=== PATIENT | female | born 1965 | race Caucasian/White ===

== ENCOUNTER 2016-11-12 10:18 | Inpatient (IN) ==
[2016-11-12] MEDS ORDERED: ASPIRIN PO STA (10:31)
--- NOTE | 2016-11-12 10:37 | EKG Report ---
Test Performed on : 11/12/2016 10:24:34 AM Test Reason : CHEST PAIN Blood Pressure : / mmHG Vent. Rate : 042 BPM Atrial Rate : 042 BPM P-R Int : 208 ms QRS Dur : 124 ms QT Int : 540 ms P-R-T Axes : 079 -67 097 degrees QTc Int : 450 ms Marked sinus bradycardia. with sinus arrhythmia. Left axis deviation Nonspecific intraventricular conduction delay Nonspecific ST abnormality Abnormal QRS-T angle, consider primary T wave abnormality Abnormal ECG When compared with ECG of 07-OCT-2015 05:47, Vent. rate has decreased BY 52 BPM Questionable change in QRS duration Unconfirmed Result
[2016-11-12 10:43] LABS: MANUAL DIFF NEEDED? NO
--- NOTE | 2016-11-12 10:53 | Diag Imaging Result Doc PS360 ---
CHEST-PORTABLE - 11/12/2016 INDICATION: CP TECHNIQUE: COMPARISON: 10/07/2015 FINDINGS: Stable right-sided dialysis catheter in good position. Stable critically low lung volumes. Stable cardiomegaly and pulmonary vascular congestion. No new or focal infiltrates. No pneumothorax or large effusion. IMPRESSION: No change from prior. Electronically signed by Shaw Dias 11/12/2016 10:50 AM
[2016-11-12 10:58] LABS: BASO% 0.4 % (0.0-0.8); EOS# 0.17 X1000 (0.0-0.7); EOS% 1.4 % (0.0-10.0); HEMATOCRIT 32.1 % (37.0-47.0); HEMOGLOBIN 10.1 g/dL (12.0-16.0); IMM GRAN# 0.06 X1000 (0.0-0.04); IMM GRAN% 0.5 % (0.0-0.5); LYMPH# 1.53 X1000 (1.2-3.4); LYMPH% 12.4 % (20.5-51.1); MCH 28.5 PG (27-31); MCHC 31.5 g/dL (33-37); MCV 90.4 FL (81-99); MONO# 0.98 X1000 (0.11-0.59); MONO% 7.9 % (1.7-9.3); MPV 9.5 FL (7.4-10.4); NEUT% 77.4 % (42.2-75.2); PLT 305 X1000 (130-400); RBC 3.55 XMIL (4.2-5.4)
[2016-11-12] MEDS ORDERED: NS 250 ML ONE (11:01)
[2016-11-12 11:05] LABS: INR 1.19 (0.86-1.15); PROTIME 16.1 Seconds (12.1-15.5); PTT PL 33.7 Seconds (22.6-43.9)
[2016-11-12] MEDS ORDERED: NS 250 ML IV ONE ×2 (11:10→11:42)
[2016-11-12 11:30] LABS: BE -17.4 mmoll (-3.0-3.0); BLOOD TYPE ARTERIAL; DRAW SITE R RADIAL; METHB 1.4 % (0.0-1.5); O2(CT) 13.1 mL/dL (15.0-23.0); PCO2(98.6) 24 mmHg (35-45); PO2(98.6) 87 mmHg (60-100); SAMPLE BLOOD; SAO2 95.7 % (95.0-100.0); THB 10.1 g/dL (11.5-17.4)
[2016-11-12 11:37] LABS: ALLEN TEST YES; MODALITY CANNULA; pH(98.6) 7.19 (7.35-7.45)
[2016-11-12] MEDS ORDERED: NEUT IV ONE (11:44)
[2016-11-12] MEDS ORDERED: SODIUM BICARBONATE 8.4% ONE (11:51)
[2016-11-12] MEDS ORDERED: SODIUM BICARBONATE IV ONE (12:00)
[2016-11-12] MEDS ORDERED: NS IV ONE (12:00)
[2016-11-12 12:03] LABS: ALBUMIN 3.8 g/dL (3.5-5.0); CALCIUM 7.5 mg/dL (8.8-10.2); MAGNESIUM 2.4 mg/dL (1.5-2.7); POTASSIUM 9.4 mmol/L (3.5-5.1); TOTAL BILIRUBIN 0.7 mg/dL (0.20-1.00); TOTAL PROTEIN 6.9 g/dL (6.3-8.3)
[2016-11-12] MEDS ORDERED: D50W SYRINGE IV ONE (12:12)
[2016-11-12] MEDS ORDERED: HUMULIN R (PARKWAY) IV ONE (12:12)
[2016-11-12] MEDS ORDERED: CALCIUM GLUCONATE 1 GM in NS 50 ML IV ONE (12:12)
[2016-11-12] MEDS ORDERED: ALBUTEROL NEB INH ONE (12:16)
[2016-11-12 12:23] LABS: CK INDEX 1.9 (0.0-2.5); CK-MB 4.24 ng/mL (0.0-5.0)
[2016-11-12] MEDS ORDERED: TIGHT: 0.2 ML/HR MISC PRN (12:27)
[2016-11-12] MEDS ORDERED: HEPARIN IV PRN ×2 (12:27→17:26)
[2016-11-12] MEDS ORDERED: NS 2,000 ML MISC PRN (12:27)
[2016-11-12] MEDS ORDERED: HEPARIN ONE (12:51)
[2016-11-12] MEDS ORDERED: NS 2,000 ML ONE (12:51)
[2016-11-12 16:27] LABS: HEMOGLOBIN A1C 7.9 % (4.8-6.0)
[2016-11-12 16:40] LABS: CHLORIDE 93 mmol/L (98-107); POTASSIUM 5.4 mmol/L (3.5-5.1); SODIUM 137 mmol/L (136-145); TCO2 18 mmol/L (25-35)
[2016-11-12 16:41] LABS: AGAP 26; BUN 70 mg/dL (8-22); CALCIUM 8.2 mg/dL (8.8-10.2); COSMO 295; TOTAL BILIRUBIN 0.91 mg/dL (0.20-1.00); TOTAL PROTEIN 8.4 g/dL (6.3-8.3)
[2016-11-12 16:42] LABS: ALBUMIN 3.8 g/dL (3.5-5.0); ALKALINE PHOSPHATASE 228 U/L (32-104); GOT 164 U/L (10-30); GPT 129 U/L (10-36); TOTAL IRON 73 ug/dL (49-151); UNBOUND IRON 149 ug/dL (112-346)
[2016-11-12 16:44] LABS: IRON SATURATION 33 %; TIBC 222 ug/dL
[2016-11-12 16:45] LABS: ACETONE SERUM NEGATIVE (NEGATIVE)
[2016-11-12] MEDS: HUMALOG SUBQ SCH ×2 (16:53→21:10)
[2016-11-12] MEDS: LABETALOL IV PRN ×2 (16:59→21:09)
[2016-11-12 17:07] LABS: CK INDEX 1.1 (0.0-2.5); CK-MB 5.43 ng/mL (0.0-5.0)
--- NOTE | 2016-11-12 17:24 | PROGRESS NOTE ---
DATE: 11/12/2016 This is a return visit, 2nd visit on dialysis. She has tolerated her treatment well and is nearing completion. LABORATORY DATA: Reviewed. Blood pressure, chart reviewed. No changes in prescription and no reason to lengthen her treatment at this time. We will plan to repeat tomorrow. cc: Damien Grant MD
[2016-11-12] MEDS ORDERED: HEPARIN 25,000 UNITS/D5W 25,000 UNIT/250 ML IV.SOLN IV SCH (17:30)
--- NOTE | 2016-11-12 17:30 | CONSULTATION ---
DATE OF CONSULTATION: 11/12/2016 REASON FOR CONSULTATION: Life-threatening hyperkalemia and volume overload. HISTORY OF PRESENT ILLNESS: Ms. Sun is a 51-year-old white female who is well known to us. She has diabetes, obesity, history of CVA, peripheral vascular disease status post right BKA. She has end-stage kidney disease and receives dialysis every Friday, Friday, and Friday. She did not attend her appointment on Friday because of technical issues at her clinic. Over the weekend she became progressively more weak and unable to get out of the chair. She is not clear on why she did not attend her treatment on Friday. She had progressively worsening shortness of breath and profound weakness and ultimately was transferred to the emergency room by ambulance. She had shortness of breath but no cough or sputum. No chest pain. No chills, fever, sweats, night sweats, etc. She does describe being cold at this time. No nausea, vomiting. No diarrhea. She has not noticed any changes in her leg as far as pain but she has noticed an ulceration on the left great toe. She states that there was an area of loose skin that she denuded about a week ago. PAST MEDICAL HISTORY: As above. HOME MEDICATIONS: Insulin, omeprazole, methocarbamol, labetalol, hydralazine, gabapentin. ALLERGIES: No medical allergies. SOCIAL HISTORY: She lives alone, is transported to and from dialysis via ambulance. She lived in [facility] for an extended time before recently transferring to an apartment. FAMILY HISTORY: Otherwise noncontributory. REVIEW OF SYSTEMS: Otherwise noncontributory. PHYSICAL EXAMINATION: Vital Signs: Blood pressure 192/85, heart rate 79, respiration 18, afebrile. General: She is an obese, middle-aged woman lying at 30 degrees in no acute distress. She is awake and alert and appropriate and oriented. Skin: Warm and dry except as below. HEENT: Pupils are equal, round. Conjunctivae are pink and moist. Oropharynx is dry. Tongue is midline and dentition normal. Neck: Supple. Trachea is midline. No jugular venous distention is visible. Heart: Distant and difficult to auscultate regular but no gallops or murmurs. Lungs: Have equal breath sounds. No crackles or wheezes. Abdomen: Obese and soft. Bowel sounds are present. No organomegaly or masses. Extremities: Have 2+ to 3+ edema extending up into the thigh. The left foot is cool and dark and somewhat mottled. Capillary refill is present but approximately 12 seconds. No palpable pulses. There is an ulcer on the dorsal aspect of the left 1st toe. Neurologic Exam: Grossly nonfocal. LABORATORY DATA: Reviewed. IMPRESSION: 1. Life-threatening hyperkalemia. She has been treated with hemodialysis with 0 K bath for 30 minutes then transitioned to 2 potassium bath. Her potassium was initially treated in the emergency room with calcium, insulin, albuterol. Her calcium has improved from 9.4 to 5.4 as of 1601. 2. Volume overload. Targeting 3-4 L ultrafiltration today and will repeat again tomorrow. She is on nasal cannula oxygen with good O2 saturations. 3. Metabolic acidosis. Lactate was 1.4. Salicylate and acetone were negative related to her renal dysfunction and under dialysis. 4. Left leg ischemia. Subacute. She states that it has looked like this for at least a couple days. She denies pain. Will ask surgery to evaluate. She states she will not accept amputation. cc: Damien Grant MD
[2016-11-12 17:34] LABS: FREE T4 1.46 ng/dL (0.93-1.70)
[2016-11-12] MEDS ORDERED: HEPARIN IV ONE (17:52)
--- NOTE | 2016-11-12 18:03 | PROGRESS NOTE ---
DATE: 11/12/2016 SUBJECTIVE: Today Ms. Sun referred to be doing fine. Of note Ms. Sun presented to the emergency department in [place] after she felt shortness of breath and weakness, could not get up on her feet so she decided to go to the emergency department. Over there she was worked up and found to have extreme abnormality in her electrolytes and was transferred here. Ms. Sun is an end-stage renal patient who is on dialysis but has not had dialysis for the past 2 sessions. OBJECTIVE: Vital signs: Blood pressure is 192/85, pulse of 79, respirations 18, temperature is 97.1 degrees. General: Ms. Sun is a 51-year-old, female is obese with a BMI of 35.7, she is in bed, no seemingly distress. She was just finishing dialysis. HEENT: Mucosa is pink and moist. Anicteric. Acyanotic. Neck: Supple. Chest: Good air entry bilateral. No crepitations. No rhonchi. Cardiovascular: Regular rate and rhythm. Abdomen: Soft, nontender. Extremities: There is a right BKA. The left lower extremity is kind of purplish from the toes all the way to the midcalf, is very cold at the distal foot. Pulse is imperceptible and there is a distal ulceration over the left big toe. LABORATORY DATA: WBC is 12.37, hemoglobin is 10.1, platelet count of 305,000. Chemistry is reviewed. Of note potassium was about 9.4, it was aggressively treated and now down to 5.4. A chest x-ray which was done on presentation shows a right subclavian dialysis catheter in place, mild cardiomegaly and some few pulmonary congestion. ASSESSMENT: 1. Mild fluid overload likely due to noncompliance with dialysis. 2. Endstage renal disease on dialysis Friday, Friday and Friday. Patient did not have dialysis since last Friday missed 2 sessions. 3. Severe critical hyperkalemia with EKG changes (EKG had peaked T-waves and severe bradycardia which got improved with therapy). Patient is also getting dialysis and this will also be further managed. 4. Left leg discoloration with coldness suspicious for acute ischemic limb. Patient has been started on prophylactic heparin but I will go ahead and put her on therapeutic heparin until patient is seen by surgery today. 5. Hypertension. Will start the patient on her home medications and put labetalol p.r.n. for blood pressure control. 6. Gap acidosis likely due to the renal failure. 7. Mild elevation in troponins. Patient does not have any chest pain, I think is probably due to the fact that is due to her renal disease. 8. Patient was already seen in [place]. History and physical has already been done I have been told by Ericka Oneil. cc: Nhan Urias MD
--- NOTE | 2016-11-12 18:15 | HISTORY AND PHYSICAL ---
CHIEF COMPLAINT: Chest pain and back pain. HISTORY OF PRESENT ILLNESS: This is a 51-year-old female with a history of diabetes mellitus, history of CVA, peripheral vascular disease status post right BKA, end-stage kidney disease with dialysis Friday, Friday, Friday. Evidently, the patient missed dialysis Friday due to a technical issue at the clinic. She reported progressive weakness over the weekend. At the time of interview she is confused and she is unsure why she did not attend her Friday dialysis. On arrival to the emergency room, she was noted to be short of breath. She had no cough or fever. She was noted to have a systolic blood pressure in the 80s per EMS. She is agitated at times. On arrival she did have a blood pressure of 108/42 with a heart rate of 56. Labs revealed a sodium of 136 with a potassium of 9.4, chloride 96, CO2 11 with a creatinine of 14.2 for which she was given an amp of bicarb with 10 units of regular insulin, D50 and calcium gluconate. Dr. Grant, Nephrology, was consulted and the patient is being transferred to [facility] for emergent dialysis and further medical management per Dr. Grant. PAST MEDICAL HISTORY: End-stage renal disease, obesity, CVA, peripheral vascular disease status post right BKA. End-stage renal disease with Friday, Friday, Friday dialysis. ALLERGIES: No known medical allergies. SOCIAL HISTORY: She does live alone. She goes to and from dialysis via ambulance. She denies alcohol, tobacco, or illicit drug use. REVIEW OF SYSTEMS: Unable to obtain at present. PHYSICAL EXAMINATION: GENERAL: This is a 51-year-old, obese female, who is sitting up in the bed, agitated at present. VITAL SIGNS: Blood pressure is 96/54 with a heart rate of 71, respirations are 18, temperature is 97.2 degrees temporal, with O2 saturations running 96-98% on 3 L nasal cannula. HEENT: Head is normocephalic, atraumatic. Pupils equal, round, reactive to light. EOMs are intact. Sclerae anicteric. Mucous membranes are moist. NECK: Supple. Trachea midline. No JVD noted. CARDIOVASCULAR: Heart sounds are distant and regular. LUNGS: Breath sounds are clear with no increased work of breathing noted. GASTROINTESTINAL: Abdomen is large, soft, nontender with bowel sounds in all 4 quadrants. EXTREMITIES: She has 2 to 3+ pitting edema extending up into the thigh. Left foot is cool, dark from about mid rodriguez down with capillary refill greater than 10 seconds. She has no palpable pulses in that leg. She does have an ulcer on the first toe. LABS: WBC is 12.3 with a hemoglobin 10, hematocrit 32.1 and platelets of 305,000. INR is 1.19. Sodium is 136, potassium 9.4, chloride 96, CO2 11, BUN 128, creatinine 14.2, with a glucose of 158. Acetone level is negative. Blood cultures are pending. ASSESSMENT AND PLAN: 1. Life-threatening hyperkalemia. The patient is being transferred to [facility] for emergent dialysis. She was initially treated in the emergency room with insulin, albuterol, calcium and D50. 2. End-stage renal disease with Friday, Friday, Friday hemodialysis. 3. Volume overload. The patient did miss 2 dialysis treatments. As stated above, she is being transferred for emergency dialysis. 4. Metabolic acidosis. Salicylate and acetone are negative. 5. Left leg ischemia. General Surgery will be consulted after dialysis. 6. Diabetes mellitus. The patient will be placed on pattern blood glucose with sliding scale insulin. 7. Further treatments pending hospital course. Dictated by NITISH Mir for Severo Smart MD cc: NITISH Mir MD
--- NOTE | 2016-11-12 19:27 | CONSULTATION ---
DATE OF CONSULTATION: 11/12/2016 REQUESTING PHYSICIAN: Nhan Urias MD REASON FOR CONSULTATION: Cold left leg. HISTORY OF PRESENT ILLNESS: A 51-year-old female with longstanding diabetes, obesity, history of CVA, history F peripheral vascular disease status post right qkale-voj-zkjw amputation, end-stage renal disease requiring dialysis who apparently missed her appointment for dialysis and became progressively flow volume overloaded. She was seen in the emergency room because of shortness of breath and had emergent dialysis. She was noted to have a potassium 9.4. She underwent dialysis at this time, which she tolerated. I was asked to evaluate the patient because she has had a several-day history of a cold leg. She denies any history of claudication, but she has had a previous bkkhy-grg-qazu amputation for diabetes on the right side. She says this has been going on for several days, but she says she can move her leg. She does have decreased sensation suggestive of peripheral neuropathy. Again, this has been going on for some time and is likely a subacute process. The nurses were able find Doppler signals. Again, I was asked for an evaluation. PAST MEDICAL HISTORY: 1. End-stage renal disease. 2. Obesity. 3. History of CVA. 4. Peripheral vascular disease. 5. End-stage renal disease requiring dialysis. PAST SURGICAL HISTORY: 1. Previous vascular access. 2. Right uqfhw-myk-qvqj amputation. HOME MEDICATIONS: Insulin, omeprazole, methocarbamol, labetalol, hydralazine, gabapentin. ALLERGIES: None. SOCIAL: She lives in a nursing facility. FAMILY HISTORY: Reviewed with patient, noncontributory. REVIEW OF SYSTEMS: A full 10-point review of systems obtained, negative except as specified in HPI. PHYSICAL EXAMINATION: Vital Signs: The patient is currently afebrile. Pulse is 79, blood pressure 192/85. O2 saturation 98% on 3 L nasal cannula. General: No acute distress. Alert, interactive, female, looks stated age. HEENT: Normocephalic, atraumatic. Pupils equal, round, react to light. Mucous membranes moist. Oropharynx benign. Neck: Supple. Trachea midline. Cardiovascular: Regular rate and rhythm. Lungs: Clear. Abdomen: Soft, nontender, nondistended. Extremities: Previous right dvsfc-yjs-[id number] amputation well healed. Left leg, skin changes suggestive of chronic vascular disease all the way to calf. Her toes are cyanotic. I am unable to find a signal in the dorsalis pedis or the posterior tibial by Doppler. I am unable to find a popliteal signal by Doppler. I was able to faintly palpate a femoral pulse, but also found it by Doppler with a triphasic to biphasic signal. Vascular: As noted above. Skin: As noted above. LABORATORY: White blood cell count is 12. Hematocrit 32. Platelet count 305,000. INR is 1.19. ABG reviewed. Laboratory from earlier this morning reviewed. ASSESSMENT AND PLAN: A 51-year-old female with multiple medical comorbidities with life- threatening hyperkalemia, end-stage renal disease and cold left leg. 1. Life-threatening hyperkalemia, being managed by dialysis. The hospitalist and Nephrology are on board. Continue current treatment. 2. End-stage renal disease. Currently undergoing dialysis. 3. Cool left leg. This appears to be a subacute process. Given her elevated creatinine and inability to get a computed tomography angiography at this time, we will ask the Seat Pack Inspector to come in and do ultrasound of the arterial aspect of the left leg. I did discuss this over the phone with a Seat Pack Inspector. She is aware. She is coming in. If there is need to, may consider doing a computed tomography angiography of the lower extremity in the morning right before she is due for dialysis, but right now we will continue to resuscitate her and correct her electrolyte abnormalities. Patient does refuse to have any kind amputation, but she might be amenable to having some kind of vascular intervention. I will need more diagnostic imaging to have an idea of where exactly disease process lies, but I imagine it is somewhere in the superficial femoral artery distribution given her presentation. I will continue to follow with you. I appreciate this consult. cc: Alexis Armenta MD
[2016-11-12] MEDS ORDERED: HEPARIN SUBQ SCH (21:00)
[2016-11-12] MEDS ORDERED: HALDOL IM PRN ×2 (22:07→22:10)
[2016-11-12] MEDS ORDERED: HALDOL ONE (22:14)
[2016-11-13 00:29] LABS: CK INDEX 0.7 (0.0-2.5); CK-MB 7.72 ng/mL (0.0-5.0)
[2016-11-13] MEDS ORDERED: DILAUDID IV ONE (02:54)
[2016-11-13] MEDS ORDERED: DILAUDID ONE (02:58)
[2016-11-13] MEDS ORDERED: D50W SYRINGE ONE (06:15)
[2016-11-13] MEDS: HUMALOG SUBQ SCH ×4 (06:17→20:08)
[2016-11-13 06:43] LABS: ALBUMIN 3.7 g/dL (3.5-5.0); CALCIUM 8.2 mg/dL (8.8-10.2); POTASSIUM 5.1 mmol/L (3.5-5.1)
--- NOTE | 2016-11-13 07:00 | PROGRESS NOTE ---
DATE: 11/13/2016 SUBJECTIVE: No major changes. Patient is on a heparin drip. She has essentially had no urine output. OBJECTIVE: Vital Signs: Patient is currently afebrile. Her vital signs are stable. General: Resting comfortably. No acute distress. HEENT: Normocephalic, atraumatic. Pupils equal, round, reactive to light. Mucous membranes moist. Oropharynx benign. Neck: Supple. Trachea midline. Cardiovascular: Regular rate and rhythm. Lungs: Grossly clear. Abdomen: Soft, nontender, nondistended. Extremities: Right uoefk-bns-bfrv amputation unchanged. Left side essentially unchanged. IMAGING DATA: Reviewed images from limited of vascular ultrasound of the left lower extremity. There appears to be significant superficial femoral artery disease and potentially even common iliac and common femoral disease. She likely has some degree of collateralization down to the popliteal through arteries around the knee, but she essentially has no flow through the superficial femoral artery, but it is a limited exam. ASSESSMENT AND PLAN: A 51-year-old female with multiple medical comorbidities, with a cold leg. 1. Life-threatening hyperkalemia. At this time, patient has undergoing dialysis. Labs are still pending for this morning, but she was improving 2. End-stage renal disease. At this time, she has made no urine. We will continue with dialysis, per Nephrology. 3. Cool leg. At this time, this is a subacute process. Likely, given the collateralization, she has had this for a while. Discussed with Dr. Grant over the phone yesterday. Will order a CTA with runoff to evaluate her disease burden. She will need dialysis afterwards. She is making no urine. Suspect overall burden to her kidneys is minimal because I suspect they are probably beyond being salvaged. She has informed me that she does not want an amputation. I suspect any kind of bypass would be futile at best, but will need to get the anatomic aspects defined better prior to any kind of consideration for surgical intervention. cc: Alexis Armenta MD
[2016-11-13 07:05] LABS: CK INDEX 1.4 (0.0-2.5); CK-MB 19.91 ng/mL (0.0-5.0)
[2016-11-13] MEDS ORDERED: NS 2,000 ML MISC PRN (07:30)
[2016-11-13] MEDS ORDERED: NS 2,000 ML ONE (08:42)
[2016-11-13] MEDS ORDERED: HEPARIN ONE (08:42)
--- NOTE | 2016-11-13 09:32 | Diag Imaging Result Doc PS360 ---
EXAM: ANGIOGRAM/AORTA W/RUNOFF HISTORY: Cold left lower extremity TECHNIQUE: CT angiogram abdomen, pelvis, and with runoff. MIP images obtained. Dose reduction protocol. COMPARISON: None. FINDINGS: The gallbladder is distended. No adjacent inflammation. No focal hepatic abnormality. Normal spleen, pancreas, and adrenal glands. Kidneys are mildly atrophic. No renal mass. There are small para-aortic and pericaval lymph nodes. No bowel obstruction. There are no bladder is distended and appears normal. Normal uterus and ovaries. No abscess. There is severe atherosclerosis in the abdomen, pelvis, and lower extremities. No abdominal aortic aneurysm. Normal takeoff of the celiac artery. Normal takeoff of the superior mesenteric artery. There is narrowing to the proximal and mid left renal artery. Stenosis is between 50 and 70%. Normal takeoff of the right renal artery. Stenosis of 50% at the takeoff of the inferior mesenteric artery. Left: Prominent atherosclerosis in the common iliac artery. Stenosis of approximately 50% at the bifurcation. There is a stenosis in the distal external iliac artery and proximal common femoral artery of 70%. There is complete occlusion throughout the length of the superficial femoral artery. Multiple prominent stenoses within the deep femoral artery. There are scattered muscular collaterals that fill with contrast. The proximal popliteal artery is occluded. The distal popliteal artery contains a small amount of contrast. Although there multiple stenoses in the proximal anterior and posterior tibial arteries, these arteries do contain contrast and continue all the way to the ankle. Right: Stenosis of the distal common iliac artery of approximately 50% at the bifurcation. Stenosis in the distal common femoral artery of approximately 50%. There is complete occlusion of the superficial femoral artery throughout its extent. The popliteal artery is also occluded. There are several tiny muscular collaterals which contain contrast. The deep femoral artery is also occluded. There has been a esycy-srm-elll amputation. IMPRESSION: Multiple occlusions and stenoses in the lower extremities as described. Electronically signed by Oscar Farr 11/13/2016 9:30 AM
--- NOTE | 2016-11-13 10:15 | PROGRESS NOTE ---
DATE: 11/13/2016 TIME SEEN: 0750. SUBJECTIVE: Ms. Sun has just returned from having a scan done for an aortic runoff to her lower extremity. She denies chest pain or increased work of breathing. OBJECTIVE: Vital Signs: Temperature 98.7 degrees, blood pressure 123/82, heart rate 78, respirations 14. She is on 4 L nasal cannula. Last recorded saturation 94%. She has had 281 in. She has had 5.7 L removed off dialysis. No urine out. Labs: Sodium 143, potassium 5.1, chloride 96, CO2 21, BUN 71, creatinine 9.3, glucose 42, anion gap 26, calcium 8.2, phosphorus 10.4, albumin 3.7. Her previous white count is 12.37 with a hemoglobin of 10.1. Her PTT is 42. TSH 4.1, free T4 1.46. Troponin 0.681 with an MB of 19.91. Plasma lactate of 1.3. PHYSICAL EXAMINATION: General: This is a 51-year-old white female. She is currently resting in bed. She is in no acute distress. Skin: Warm and dry. HEENT: Atraumatic, normocephalic. Conjunctivae pale. She has NORMAN. Mucous membranes are moist. Neck: Supple. Trachea midline. No JVD. Cardiovascular: She has distant heart sounds. S1, S2 noted. No gallop or murmur appreciated. Lungs: Clear to auscultation bilateral. She remains on O2. Equal excursion. Abdomen: Obese, soft, nontender. Positive bowel sounds. Genitourinary: Not inspected. Minimal void with dialysis assist. Extremities: With 2 to 3+ lower extremity edema up into the thigh. Left foot is cool and dark, mottled. No pulse palpable. Neurological: She is alert and oriented x3 with loss of recent events yesterday. ASSESSMENT AND PLAN: 1. End-stage renal disease. Patient is due for treatment today per her routine scheduled prescription she had an acute dialysis treatment yesterday for life- threatening hyperkalemia of 9.4. We will plan to dialyze the patient today. She is to be on a 2 K bath. We will dialyze her for 3.5 hours. We will attempt to challenge her dry weight. 2. Electrolytes. Hyperkalemia has improved status post dialysis. It continues slightly elevated at 5.1, with dialysis correction today. 3. Acid-base balance. Again, slightly acidotic with an elevated anion gap. We will plan for dialysis today for correction. 4. Anemia. This remains stable. 5. Left leg ischemia with a diabetic foot. This is being followed by Dr. Armenta. I would like to thank you for allowing us to follow with this patient. Patient seen, data reviewed, discussed with Montana Kraft on 11/13/16. I agree with the above assessment and plan of care. rg Dictated by NITISH Harris for Damien Grant MD cc: NITISH Harris MD [facility]
--- NOTE | 2016-11-13 12:06 | PROGRESS NOTE ---
DATE: 11/13/2016 SUBJECTIVE: Today, Ms. Sun refers to be doing fine. Of note, she denies any chest pain, any shortness of breath. No more shortness of breath. She has been evaluated by surgery today and CTA was ordered. PHYSICAL EXAMINATION: Vital Signs: Blood pressure is 136/92, pulse of 78, respirations are 18, temperature is 98.7 degrees. General Examination: Ms. Sun is a 51-year-old, female. She was in bed. Not seemingly distressed. Was actually doing a session of hemodialysis. HEENT: Mucosa is pink and moist. Anicteric. Acyanotic. Neck: Neck is supple. Chest: Good air entry bilaterally. Few bibasilar crepitations. Cardiovascular: Regular rate and rhythm. Abdomen: Soft. 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 The left lower extremity continues to have this purplish discoloration of the leg and on the foot. The distal part of the foot feels colder. There is an ulcer on the dorsal aspect of the big left toe. PALLETIZER: The patient is awake and oriented x4. There is no focal neurological deficit. LABORATORY DATA: No CBC today. Chemistry: Sodium is 143, potassium is 5.1, chloride 96, bicarb is 21, phosphorus is 10.4. Troponin is up to 0.681. The patient is already on a drip. The result of the CTA without runoff showed multiple occlusions and stenoses in the lower extremities, more on the left. Specifically, there is a complete occlusion through the length of the superficial femoral artery. There is also multiple prominent stenoses within the deep femoral artery. ASSESSMENT: 1. Mild fluid overload. This has been addressed with dialysis. 2. Endstage renal disease, on hemodialysis. 3. Severe life-threatening hyperkalemia on presentation, resolved. 4. Left acute ischemic limb. Patient was started on heparin and we are pending surgery. Further recommendation after the CTA. 5. Troponin elevation which continues to be worse. Of note, patient does not complain of any chest pain. However, she came in because of shortness of breath and some fluid overload. Unsure if it was due to congestive heart failure or because of noncompliance with dialysis. Patient is on aspirin and is getting therapeutic heparin so we will also repeat her EKG, do an echocardiogram and a stress test, and also get cardiology to evaluate the patient. Patient seems to be extremely vasculopathic so I suspect that she definitely has some coronary artery disease. cc: Nhan Urias MD
[2016-11-13] MEDS ORDERED: VANCOMYCIN IV PER PHARMACY MISC SCH (14:00)
[2016-11-13 14:30] LABS: CALCIUM 9.2 mg/dL (8.8-10.2)
[2016-11-13] MEDS ORDERED: HEPARIN 25,000 UNITS/D5W 25,000 UNIT/250 ML IV.SOLN IV SCH ×2 (14:47→18:37)
[2016-11-13] MEDS ORDERED: HEPARIN IV ONE (14:50)
[2016-11-13] MEDS ORDERED: VANCOMYCIN 1 GM/NS 1 GM/250 ML IVPB IV ONE (15:00)
--- NOTE | 2016-11-13 15:10 | EKG Report ---
Test Performed on : 11/13/2016 08:23:41 AM Test Reason : chest pain/ elevated troponins Blood Pressure : / mmHG Vent. Rate : 071 BPM Atrial Rate : 071 BPM P-R Int : 162 ms QRS Dur : 090 ms QT Int : 456 ms P-R-T Axes : 053 026 148 degrees QTc Int : 495 ms Normal sinus rhythm. Possible Left atrial enlargement Marked ST abnormality, possible lateral subendocardial injury Prolonged QT Abnormal ECG When compared with ECG of 12-NOV-2016 10:24, (Unconfirmed) Vent. rate has increased BY [address] abnormality, possible lateral subendocardial injury leads I and AVL T wave inversion now evident in high-lateral leads 1 and AVL T wave inversion less evident in V1-V2 T wave amplitude has decreased in far lateral leads Confirmed by Lion Kwan DO ([id number]) on 11/16/2016 7:57:08 PM
--- NOTE | 2016-11-13 15:18 | ECHO REPORT ---
ORDER DATE: 11/12/2016 MEASUREMENTS: Left ventricular septal thickness 0.9. Posterior wall thickness 0.9. Left atrium 4.5. Aortic root 3.0. SUMMARY: 1. Technically difficult study due to limited acoustic window quality. 2. Aortic valve is sclerotic but opens adequately on 2-dimensional images. Mild mitral annular calcification is demonstrated with mild to moderate mitral regurgitation. Tricuspid and pulmonic valves are without evidence of structural abnormality. There is mild tricuspid regurgitation. The estimated systolic PA pressure by Doppler is approximately 70 mmHg suggesting moderate to severe pulmonary hypertension. The aortic root is normal size. 3. Mild left ventricular enlargement with normal wall thickness demonstrated. Estimated left ejection fraction is approximately 30% in the setting of global hypokinesis. There appears to be akinesis of the apical inferior wall and apical septum. The very apex also appears to be akinetic. On some views there is suggestion of an echodensity in left apical apex and apical thrombus cannot be excluded given limitations of study. Left atrium is mildly enlarged. Right atrium and right ventricle are normal in size with normal right ventricular systolic function. 4. No pericardial effusion. 5. Appearance of inferior vena cava suggests elevated central venous pressure. CONCLUSIONS: 1. Technically difficult study. 2. Aortic valve sclerosis without stenosis. 3. Mild to moderate right mitral regurgitation. 4. Mild tricuspid regurgitation with moderate to severe pulmonary hypertension. 5. Mild left ventricular enlargement with estimated left ejection fraction 30% in the setting of global hypokinesis and akinesis of apical inferior wall, apical septum, and very apex. 6. Cannot exclude apical thrombus. 7. Mild left atrial enlargement. 8. Consider utilizing intravenous echo contrast agent Definity to better assess left ventricular systolic function, wall motion, and evaluate for the possibility of apical thrombus. cc: MD Maninder Todd CRNP
[2016-11-13] MEDS ORDERED: ZOFRAN IV PRN (15:23)
[2016-11-13] MEDS ORDERED: VITAMIN D PO SCH (15:45)
[2016-11-13] MEDS: RENAGEL PO SCH (16:56)
[2016-11-13] MEDS: HEPARIN 25,000 UNITS/D5W 25,000 UNIT/250 ML IV.SOLN IV SCH ×2 (19:09→22:51)
[2016-11-13] MEDS: SENSIPAR PO SCH (20:08)
[2016-11-13] MEDS: COREG PO SCH (22:06)
--- NOTE | 2016-11-14 04:11 | CONSULTATION ---
DATE OF CONSULTATION: 11/13/2016 IMPRESSION: 1. Mild elevation in troponin to 0.681 with elevated CPK-MB to 1412 with normal CPK-MB index. Although abnormal troponin very well may have been precipitated by volume overload in setting of missing hemodialysis twice in the past week and associated volume overload. Echocardiography suggests ischemic cardiomyopathy. 2. Abnormal echocardiography suggesting ischemic cardiomyopathy. 3. Currently admitted with volume overload and hyperkalemia in setting of missing dialysis twice in the past week. 4. Ischemic left foot with severe peripheral vascular disease evident on CT angiography done today. 5. End-stage renal disease requiring hemodialysis 3 times a week for the past 4- 1/2 years. 6. Diabetes mellitus requiring insulin for control. 7. Hypertension. 8. Previous cigarette use, discontinued 6 years ago. RECOMMENDATIONS: 1. Aspirin p.o. daily. 2. Assess functional significance of underlying coronary disease with Lexiscan myocardial perfusion study. 3. Given ischemic left foot, will try to manage coronary disease/ischemic cardiomyopathy conservatively depending on result of Lexiscan sestamibi study. However the patient's left foot may not be salvageable in the long run and further evaluation of her likely coronary artery disease may be warranted if this is the case. 4. Add coreg. HISTORY: This 51-year-old, white female with past history of diabetes mellitus requiring insulin for control right wzeni-irq-bpvl amputation for diabetic foot problems, end- stage renal disease requiring hemodialysis for the past 4 and half years, hypertension, and previous cigarette use was admitted recently after she missed dialysis 2 days last week. She relates that the hemodialysis center had a water flooding problem on Friday and she was advised not to go by the transport people as the center was closed. She cannot remember why she did not go to dialysis on Friday. She started having worsening shortness of breath and weakness. There was no chest pain. She is brought to the emergency room by ambulance. She was found to be volume overloaded. She also had hyperkalemia. She was noted to have ischemic changes and her left lower extremity distally and an ulceration on her left great toe. She has been found to have severe ischemia of the distal left lower extremity and CT angiography today indicates advanced peripheral vascular disease. She is not aware of any previous cardiac problems. She has never had angina. She is not ambulatory since her right iiynp-hgk-kraq amputation. She did get a prosthesis but never really returned to ambulation. She gets around using a motorized Scooter/wheelchair and lives in an apartment. She is dependent upon pelvic transportation to get to the grocery store, etc. She quit smoking about 4-1/2 years ago and previously smoked 1 pack of cigarettes per day. PAST MEDICAL HISTORY: 1. Diabetes mellitus requiring insulin for control. 2. Right diexa-oud-xdrl amputation for diabetic wound problem. 3. Hypertension. 4. End-stage renal disease requiring hemodialysis 3 times a week for the last 4- 1/2 years. 5. Hypertension. 6. She has no medicine allergies. MEDICATIONS: Prior to admission as listed. SOCIAL HISTORY: She is originally from [place]. 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 She previously lived in [place] before moving to [place]. With deterioration in her health and mormonism of need for hemodialysis, she has become deplete of financial resources, although she does have Medicare and Medicaid. She lives in an apartment. She does not smoke, having quit smoking 4-1/2 years ago. She does not use alcohol. FAMILY HISTORY: Positive for coronary disease with older age of clinical onset. REVIEW OF SYSTEMS: Pulmonary: Noteworthy for dyspnea but no significant cough. Gastrointestinal: Noteworthy for some tendency for gastroesophageal reflux, which she describes fairly consistent with this entity. Constitutional: Review of systems negative/noncontributory beyond History Present of Illness. Remainder of review of systems negative/ noncontributory beyond History of Present Illness with 14 total systems reviewed. PHYSICAL EXAMINATION: General: Reveals an obese middle-aged female in no distress. Vital Signs: As recorded include a blood pressure 131/62, heart rate 80 and regular with ECG monitor showing sinus rhythm. HEENT: Extraocular movements intact. Mucous membranes moist. Neck: Supple without jugular venous distention. There are no carotid bruits. Chest: Clear to auscultation. Cardiac: Exam reveals a regular rate and rhythm without appreciable murmur or gallop. Abdomen: Soft, nontender. Bowel sounds are normal. Extremities: Noteworthy for right fqqai-dyg-qmhq amputation. Patient's distal left lower extremity is erythematous and cool very distally. Pedal pulses are not palpable. Neurologic: Exam reveals her to be alert and fully oriented. Speech is fluent. She moves all 4 extremities equally well. Skin: Warm and dry. Psychiatric: Reveals her mood to be appropriate. PERTINENT DATA: Twelve lead electrocardiogram demonstrates normal sinus rhythm. Left atrial abnormality. ST and T-wave abnormality, consider lateral ischemia, and borderline prolonged QT interval. Echocardiography performed yesterday afternoon demonstrates aortic valve sclerosis without stenosis. Qhgw-sz-obshbwts mitral regurgitation. Mild left ventricular enlargement with estimated left ejection fraction 30% in the setting of global hypokinesis and akinesis of the apical inferior wall, apical septum and very apex. Mild left atrial enlargement demonstrated. Given limitation of study, cannot exclude apical thrombus and consideration to be given to using intravenous echo contrast agent Definity to better assess left ventricular systolic function wall motion and evaluate possibility of apical thrombus. cc: Nehemias Parra MD MTDD
[2016-11-14 06:03] LABS: ALBUMIN 3.9 g/dL (3.5-5.0); CALCIUM 7.8 mg/dL (8.8-10.2); POTASSIUM 5.3 mmol/L (3.5-5.1)
[2016-11-14] MEDS: HUMALOG SUBQ SCH ×4 (06:25→20:07)
[2016-11-14] MEDS: HEPARIN 25,000 UNITS/D5W 25,000 UNIT/250 ML IV.SOLN IV SCH ×4 (06:26→20:29)
[2016-11-14] MEDS ORDERED: TIGHT: 0.2 ML/HR MISC PRN (07:05)
[2016-11-14] MEDS ORDERED: NS 2,000 ML MISC PRN (07:05)
[2016-11-14] MEDS ORDERED: HEPARIN IV PRN (07:05)
[2016-11-14] MEDS ORDERED: NS 2,000 ML ONE ×2 (07:19→12:16)
[2016-11-14] MEDS ORDERED: HEPARIN ONE ×2 (07:19→12:16)
--- NOTE | 2016-11-14 07:19 | PROGRESS NOTE ---
DATE: 11/14/2016 SUBJECTIVE: Reviewed CTA from yesterday. The patient does have very significant peripheral vascular disease with multiple areas of occlusion and stenosis of the left lower extremity. No major issues as reported by the nurse for the patient. She did tolerate dialysis yesterday. OBJECTIVE: Vital Signs: The patient is currently afebrile. Her vital signs have been stable. General: No acute distress. Resting comfortably. HEENT: Normocephalic, atraumatic. Pupils equal, round, reactive to light. Mucous membranes moist. Oropharynx benign. Neck: Supple. Trachea midline. Cardiovascular: Regular rate and rhythm. Lungs: Grossly clear. Abdomen: Soft, nontender, nondistended. Extremities: Right ctekj-scq-godo amputation site unchanged; left side essentially unchanged, with some cyanosis to the distal aspect of the foot. It does not seem to have gotten any worse. The wounds do not appear to be getting any worse. She is motor intact on that side. IMAGING: I did review her CTA, personally reviewed the report. LABORATORY DATA: Of note, the patient's potassium is 5.3, creatinine is 8.2. ASSESSMENT AND PLAN: A 51-year-old female with multiple medical comorbidities and a cold leg. 1. Life-threatening hyperkalemia. At this time, she has undergone dialysis, and this seems to be improving. 2. End-stage renal disease. At this time, the patient is going to continue dialysis. 3. Cold leg. At this time, this is a subacute process. I reviewed her CTA. She has essentially occluded her superficial femoral artery and her profunda on the left side. She is maintaining some circulation to her calf and foot by collateralization through the muscle and around the knee. The major vessels are occluded. She has dense atherosclerosis noted to all the major vessels. This likely makes any kind of bypass difficult and likely high risk , and even if we did a bypass, I am not sure we could salvage the foot, and the patient is still adamant on having no amputation to her foot. At this time, I would like to have her heart evaluated further before committing her to any major operation. I had a lengthy discussion with the patient at the bedside about expectations from bypass surgery, and felt there was a good chance that even if we did the bypass, that we would not be able to salvage the foot. This was all discussed with the patient. 4. Coronary artery disease. At this time, Cardiology is following her. There is potential for a stress test coming up soon. I would like to see the results of that before committing to any kind of major vascular bypass. cc: Alexis Armenta MD MTDD
[2016-11-14] MEDS ORDERED: LEXISCAN ONE (08:03)
[2016-11-14] MEDS: ASPIRIN PO SCH (09:58)
[2016-11-14] MEDS: ROCALTROL PO SCH (09:58)
[2016-11-14] MEDS: COREG PO SCH ×2 (09:58→20:07)
[2016-11-14] MEDS: RENAGEL PO SCH ×3 (09:58→16:31)
[2016-11-14] MEDS: SENSIPAR PO SCH ×2 (09:58→20:07)
--- NOTE | 2016-11-14 11:22 | PROGRESS NOTE ---
DATE: 11/14/2016 SUBJECTIVE: Subjectively today Ms. Sun referred to be doing fine. Denies any symptoms. No chest pain. No shortness of breath. OBJECTIVE: Vital signs: Blood pressure is 144/69, pulse of 170, respirations 19, temperature is 98.5 degrees. General Examination: Mr. Sun is a 51-year-old female. She is in bed, not seemingly distressed. She is slightly obese. BMI 34.3. And mucous is pink and moist. Anicteric. Acyanotic. Neck: Supple. Chest: Good air entry bilaterally. No crepitations. No rhonchi. Cardiovascular: Regular rate and rhythm. Abdomen: Soft. Mildly distended, but nontender. Bowel sounds are present. Extremities: There is a below the knee amputation on the right lower extremity. The left lower extremity continues to have this purplish discoloration of the entire mid to the distal aspect including the foot. The distal of the foot is cold. There is an ulceration over the big toe. COUNSELOR EDUCATION PROFESSOR: The patient is awake and alert, oriented times 4. LABORATORY DATA: No CBC today. Chemistry: Sodium is 137, potassium is 5.3, chloride is 92. PTH yesterday was 738 and vitamin D is less than 5. ASSESSMENT: 1. Fluid overload on presentation, likely secondary to congestive heart failure and end-stage renal disease. 2. End-stage renal disease on hemodialysis. Patient has not had not gone for dialysis for 2 sections in the role before presentation. 3. Left ischemic limb. It is it looks like patient has very severe stenosis of the lower extremity vessels with possible subacute obstruction of flow to the lower extremity. Surgery has been consulted and I think the plan is probably to do an amputation since from the CTA report, there did not seem like a bypass will be feasible alternative. 4. Non-ST ejection myocardial infarction. The patient had an echo yesterday which showed ejection fraction of 30 without global hypokinesis and akinesis of the apical inferior wall. Cardiology has been consulted for stress. 5. Congestive heart failure, noted. 6. Hyperkalemia on presentation, resolved. 7. Secondary hyperparathyroidism, likely due to underlying renal disease and vitamin D deficiency. We will continue to address this. 8. Hyperphosphatemia due to end-stage renal disease. The patient has been started on phosphate binders. 9. Bone and mineral disease associated with end-stage renal disease, noted. So, today Ms. Sun is relatively stable. She had a stress test this morning which is pending the report. I think as specifically with the regards to her lower extremity, she is probably going to end up needing amputation and we discussed the possibility with her on that regard. cc: Nhan Urias MD
[2016-11-14] MEDS ORDERED: NS 1,000 ML ONE (13:30)
--- NOTE | 2016-11-14 14:14 | VASCULAR LAB ---
PROCEDURE NAME: Arterial U/S Unilateral Leg - 11/12/2016 REQUESTING PHYSICIAN: Alexis Armenta MD LABOR COMMISSIONER: Warne. INDICATIONS: Ischemic left leg. EQUIPMENT: [employer] E9 ultrasound system with 9LD transducer. FINDINGS: Images of the arterial side of the left leg were studied. This was a limited study secondary to the patient's poor cooperation secondary to pain. There is flow noted in the left common femoral artery, although very faint. There appears to be some mild flow noted in the profunda on the left side, which was likely related to collateralization, and some flow noted located to the popliteal artery distally, but again, no flow noted in the superficial femoral artery suggests that the popliteal was reconstituted via collateralization. INTERPRETATION: Likely superficial femoral artery occlusion and disease with potential for disease in the profunda. cc: Alexis Armenta MD
--- NOTE | 2016-11-14 14:47 | PROGRESS NOTE ---
DATE: 11/14/2016 TIME SEEN: 0720 hours. SUBJECTIVE: Ms. Sun is resting quietly in bed. Head of the bed is elevated. She is in a full 90 degree elevation with lower foot down secondary to patient being able to tolerate getting out of bed. She denies chest pain or increased work of breathing. OBJECTIVE/VITAL SIGNS: Her most recent vital signs: Temperature 98.5 degrees, blood pressure 140/63, heart rate 78, respirations 20. She is on room air. Last recorded saturation is 96%. She has had 1728 in. She has had 5 L removed off of dialysis yesterday. LABS: Sodium 137, potassium 5.3, chloride 92, CO2 22, BUN 58, creatinine 8.2, glucose 170. Her anion gap is 23, calcium 7.8, phosphorus 8.2, albumin 3.9. Previous hemoglobin 10.1 on the eighth. PHYSICAL EXAMINATION: General: This is a 51-year-old white female. She is resting in bed. She is in high semi-Corrigan's position. She is in no acute distress. Skin: Warm and dry. HEENT: Normocephalic, atraumatic. Conjunctivae pale. She has NORMAN. Mucous membranes are moist. Neck: Supple. Trachea midline. No murmur or gallop. Lungs: Clear to auscultation anteriorly. Equal excursion. She is on O2. Abdomen: Obese, soft, nontender. Positive bowel sounds. Genitourinary: Not inspected. Minimal void with dialysis assist. Extremities : Continues with 2+ to 3+ lower extremity edema. She has a dressing to the left foot. No exterior drainage noted. Neurological: She is alert and oriented x3. ASSESSMENT AND PLAN: 1. End-stage renal disease. Patient had her routine dialysis treatment yesterday. We will plan for dialysis today secondary to her fluid volume overload. We will place her on a 2 potassium bath. She is to dialyze for 3-1/2 hours. We will attempt to challenge her dry weight. 2. Electrolytes. Patient continues with mild hyperkalemia with correction on dialysis. 3. Acid-base balance. Again, correction on dialysis. 4. Anemia. This is stable. 5. Ischemic foot to the left leg. This is followed by the primary care team and surgery. I would like to thank you for allowing us to follow with this patient. Patient seen, data reviewed, discussed with Montana Kraft on 11/14/16. I agree with the above assessment and plan of care. rg Dictated by NITISH Harris for Damien Grant MD cc: NITISH Harris MD [facility]
--- NOTE | 2016-11-14 17:23 | PROGRESS NOTE ---
DATE: 11/14/2016 SUBJECTIVE: The patient continues without chest discomfort or dyspnea. OBJECTIVE: Vital Signs: Blood pressure 140/63, heart rate 90 and regular. Oxygen saturation 95%. There is no significant jugular venous distention. Chest: Clear to auscultation. Cardiac Exam: Reveals a regular rate and rhythm without appreciable murmur or gallop. Extremities: Without edema. Noteworthy for right nnccr-yvo-vbbe amputation. The left foot is cool and erythematous. Pedal pulses not palpable. IMPRESSION: 1. Abnormal cardiac enzymes likely provoked by volume overload in the setting of multivessel coronary atherosclerosis and ischemic cardiomyopathy. Doubt acute thrombotic event. 2. Ischemic cardiomyopathy suggested by echocardiography. 3. Peripheral artery disease, severe. Patient is status post right xlbrp-mrb-rqtb amputation and has severe ischemia of the left foot. 4. End-stage renal disease requiring hemodialysis. 5. Diabetes mellitus requiring insulin. 6. Hypertension. RECOMMENDATIONS: 1. Continue aspirin daily. 2. Increase Coreg as tolerated. 3. Add low-dose ARB. 4. Patient ultimately would benefit from coronary angiography and consideration of revascularization options. She very well may not be considered a very good candidate for coronary bypass. Lexiscan and myocardial perfusion imaging performed today, would be helpful guide for strategic revascularization. cc: Nehemias Parra MD
[2016-11-14] MEDS: DIOVAN PO SCH (18:32)
[2016-11-14] MEDS: VANCOMYCIN 1 GM/NS 1 GM/250 ML IVPB IV SCH (20:23)
[2016-11-15] MEDS: HEPARIN 25,000 UNITS/D5W 25,000 UNIT/250 ML IV.SOLN IV SCH ×2 (02:13→07:10)
[2016-11-15] MEDS: HUMALOG SUBQ SCH ×4 (05:59→21:20)
[2016-11-15 06:55] LABS: CALCIUM 7.9 mg/dL (8.8-10.2); POTASSIUM 4.7 mmol/L (3.5-5.1)
--- NOTE | 2016-11-15 07:06 | PROGRESS NOTE ---
DATE: 11/15/2016 SUBJECTIVE: The patient is essentially unchanged. She did have a myocardial perfusion study yesterday which official reports are pending. She did undergo dialysis which she tolerated. No major issues reported by the nursing staff. OBJECTIVE: Vital Signs: Patient is currently afebrile. Her vital signs are stable. General: No acute distress. Resting comfortably. HEENT: Normocephalic, atraumatic. Pupils equal, round, reactive to light. Mucous membranes moist. Oropharynx benign. Neck: Supple. Trachea midline. Cardiovascular: Regular rate and rhythm. Lungs: Grossly clear. Abdomen: Soft, nontender, nondistended. Extremities: Right ddplp-ter-ozaj amputation site unchanged. Left side is essentially unchanged and is not getting worse. IMAGING: None currently. LABORATORY DATA: Pending. MICROBIOLOGY: She does have Staphylococcus epidermidis in her blood culture which may represent a contaminant. ASSESSMENT AND PLAN: A 51-year-old female with multiple medical comorbidities and a cold leg. 1. Life-threatening hyperkalemia. At this time, this appears to be improving with dialysis. Continue to monitor. 2. End-stage renal disease. At this time, patient is continuing to undergo dialysis. 3. Potential for coronary artery disease. At this time, Cardiology is following her. There is a potential that she might need something like a coronary artery bypass. Given this, may need to hold off on any kind of surgical intervention to preserve the vein on the left side for potential bypass. I think this is likely makes her high risk for any surgery but will defer cardiac risk stratification to Cardiology. 4. Cold leg. At this time, this is subacute process. It is not clinically getting any worse. She is on a heparin drip. I reviewed her CTA yesterday and again, I suspect she is a poor surgical candidate and in light of the potential for coronary artery bypass, we may need to preserve the vein and see what future plans are going to be for any kind of heart surgery. I again believe that her best option would probably be an amputation but the patient is still not wanting to have it done. I suspect that a bypass would only be a temporary fix and we might not be able to salvage her foot. I will review the CTA with some of my partners at the beginning of next week, but we will continue current treatment as of right now. cc: Alexis Armenta MD
[2016-11-15] MEDS ORDERED: NS 2,000 ML MISC PRN (08:31)
[2016-11-15] MEDS ORDERED: TIGHT: 0.2 ML/HR MISC PRN (08:31)
[2016-11-15] MEDS ORDERED: HEPARIN IV PRN (08:31)
[2016-11-15] MEDS ORDERED: EPOGEN SUBQ ONE (09:03)
--- NOTE | 2016-11-15 09:20 | PROGRESS NOTE ---
DATE: 11/15/2016 SUBJECTIVE: She is sitting up and eating. She states she still has not been out of bed. No shortness of breath, though she is on oxygen. OBJECTIVE: Vital Signs: Blood pressure 136/68, heart rate 78, respirations 20, afebrile. Intake 1.9 L. Output 3.2 L. General: No acute distress. Skin: Warm and dry. Neck: Neck veins are not appreciated. Heart: Regular without gallops or murmurs. Lungs: Have equal breath sounds. No crackles or wheezes. Abdomen: Obese and soft with normal bowel sounds. Extremities: Have trace edema. No clubbing or cyanosis. LABORATORY DATA: Sodium 138, potassium 4.7, chloride 92, bicarbonate 25, BUN 47, creatinine 7.1. IMPRESSION: 1. Volume overload and end-stage renal disease. Today is her routine dialysis day, so we will proceed with her routine treatment and again challenge her dry weight. 2. Hyperkalemia, resolved. 3. Staphylococcus epidermidis bacteremia. Continue vancomycin. 4. Anemia. We will dose with erythropoietin. cc: Damien Grant MD
[2016-11-15] MEDS: ROCALTROL PO SCH (09:42)
[2016-11-15] MEDS: SENSIPAR PO SCH ×2 (09:42→21:19)
[2016-11-15] MEDS: DIOVAN PO SCH (09:43)
[2016-11-15] MEDS: ASPIRIN PO SCH (09:43)
[2016-11-15] MEDS: COREG PO SCH ×2 (09:43→21:19)
[2016-11-15] MEDS: RENAGEL PO SCH ×3 (09:47→16:07)
--- NOTE | 2016-11-15 12:03 | PROGRESS NOTE ---
DATE: 11/15/2016 SUBJECTIVE: Today, Ms. Sun appears to be doing fine. She was actually sitting up in a chair seemingly without any complaint. OBJECTIVE: Vital signs: Blood pressure is 136/58, pulse of 78, respirations 20, temperature 98.3. General: Ms. Sun is a 51-year-old female. She was sitting up in a chair in no distress. HEENT: Mucosa is pink. Anicteric and acyanotic. Neck: Supple. Chest: Good air entry bilaterally. No crepitations, no rhonchi. Cardiovascular: Regular rate and rhythm. Abdomen: Soft. nontender. Bowel sounds are present. Extremities: Right lower extremity has a BKA. Left lower extremity continues to have some purplish discoloration of the entire mid to distal aspect of the leg. The foot is also cold and purplish. There is maceration over the big toe. LABORATORY DATA: Sodium 138, potassium 4.7, chloride 92, bicarbonate is 25, all consistent with end-stage renal disease. ASSESSMENT: 1. Fluid overload on presentation likely due to congestive heart failure and end-stage renal disease. 2. End-stage renal disease on hemodialysis. 3. Left ischemic limb. The patient had a CTA which shows multiple stenosis of the lower extremity vessels. I think this is subacute etiology, so we will go ahead and discontinue the heparin drip for now. 4. Elevated troponins likely related to NSTEMI. The patient had an echo which shows an ejection fraction of 30% with global hypokinesis. 5. Congestive heart failure likely due to ischemic cardiomyopathy. 6. Hyperkalemia on presentation, resolved. 7. Secondary hyperparathyroidism due to underlying renal disease and Vitamin D deficiency. 8. Hyperphosphatemia due to end-stage renal disease. The patient is on phosphorus binders. 9. Bone and mineral disease associated with end-stage renal disease noted. 10.Staphylococcus epidermidis bacteremia. The patient is on vancomycin, and we have consulted ID. In general, I think Ms. Sun is doing a lot better. We are still waiting on the official report on the stress test. However, I think the plan is for her to have a left heart cath. The patient is being followed up by Surgery, Nephrology, and Cardiology. Will be pending further recommendations from Cardiology when the left heart cath will be done. We will discontinue the heparin drip and put her on prophylaxis, continue with her aspirin, and start her on a high-intensity statin. cc: Nhan Urias MD
[2016-11-15] MEDS: CRESTOR PO SCH (12:29)
--- NOTE | 2016-11-15 12:58 | ECHO REPORT ---
ORDER DATE: 11/14/2016 INDICATION: Re-evaluate LV function with Definity considering relatively difficult images obtained on the 8th. FINDINGS: No Doppler evaluation was performed. This is a predominantly 2 dimensional evaluation. 1. No evidence of pericardial effusion. 2. Right ventricle does appear to have mild RV systolic function with mild RV dilatation. 3. The left ventricle does appear to have mild LV systolic function on the order of an EF estimate of 45%. There is mild global hypokinesis. There is no evidence of intraventricular thrombus on this study. cc: MD Nehemias Agee MD
[2016-11-15] MEDS ORDERED: NS 1,000 ML ONE (14:21)
--- NOTE | 2016-11-15 16:24 | CONSULTATION ---
DATE OF CONSULTATION: 11/15/2016 CONCLUSION: The patient has a coagulase-negative staphylococcus bacteremia. I think it originates from her tunneled dialysis catheter rather than from her ischemic foot. I think there is a component of cellulitis to the patient's left leg, as well as ischemia. RECOMMENDATIONS: I agree with treating with vancomycin. If the infection is from a dialysis catheter ,because the organism is Staph epidermidis I think it is reasonable to treat and leave the catheter in. If the infection should recur after the antibiotic stopped then the catheter will have to be removed. I think the vancomycin also should provide good coverage for any cellulitis that may be present on the patient's left leg. DISCUSSION: It was difficult to get from the patient her history. She seemed a little bit confused. The patient approximately a week ago started developing swelling and purple discoloration of her left foot. It was not particularly painful. She eventually has been admitted to the intensive care unit here. Blood gases show a pH of 7.19, a PO2 of 87, a pCO2 of 24. CBC has a white count of 12,370, hemoglobin 10.1, and platelet count 305,000. Patient's creatinine is 7.1, GFR is 6. An echocardiogram showed no definite vegetation. Chest x-ray shows pulmonary vascular congestion. As mentioned above too the patient's blood cultures are growing coagulase-negative Staph. PAST MEDICAL HISTORY/REVIEW OF SYSTEMS: Eyes and ears: She has a decrease in her vision. Her hearing is okay. The decrease in her vision only occurred in the past 3 days. Neck: No stiffness. Respiratory: No cough or shortness of breath. Cardiovascular: No chest pain or palpitations. GI: No nausea, vomiting, or diarrhea. : The patient does not pass much urine. She is on dialysis. 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 MEDICAL DISEASES: Positive for diabetes mellitus, hypertension, end-stage renal disease, hemodialysis, morbid obesity, peripheral vascular disease, and stroke, gastroesophageal reflux disease, and peripheral paresthesias. INFECTIOUS DISEASE HISTORY: Negative for pneumonia and UTI. FAMILY HISTORY: Positive for diabetes mellitus, hypertension, and myocardial infarction. SOCIAL HISTORY: [place] She is single. She is disabled. She does not have any pets. ALLERGIES: The only drug allergy the patient has is saccharin. HOME MEDICATIONS: Consist of the followin. Prilosec. 2. Methocarbamol. 3. Labetalol. 4. Insulin. 5. Hydralazine. 6. Gabapentin. PHYSICAL EXAMINATION: Vital Signs: Temperature is 98 degrees, pulse 79, respirations 24, blood pressure 108/76. General: This is an obese, ill-appearing middle-aged female. She is in no acute distress. Head, Eyes, Ears, Nose, and Throat: She can hear my spoken words and see near objects. No drainage noted from the nose or ears. Neck: No meningismus. Thorax: Appeared to be an increased AP diameter of the chest. Patient has a tunneled dialysis catheter present on the right side of the chest. Lungs: Clear to auscultation. Cardiovascular: Regular heart rate. Abdomen: Soft and nontender. Extremities: Patient has a right [id number] amputation. Integument: No rash. Thank you for the consult. cc: Heber Laws MD
--- NOTE | 2016-11-15 17:30 | PROGRESS NOTE ---
DATE: 11/15/2016 SUBJECTIVE: Patient continues without chest discomfort or dyspnea. She has just had Infectious Disease consultation regarding positive blood culture for coag-negative staph. It is suspected that her dialysis catheter may be culprit. OBJECTIVE: Vital Signs: Blood pressure 105/61, heart rate 80 and regular. Oxygen saturation 100% on nasal cannula oxygen at 3 L. Neck: There is no significant jugular venous distention. Chest: Clear to auscultation. Cardiac Exam: Reveals a regular rate and rhythm without appreciable murmur or gallop. Extremities: Noteworthy for right [id number] amputation and cool left foot with ischemic changes. Echocardiography with Definity echo contrast indicates left ventricular ejection fraction 45%. Lexiscan sestamibi study was very technically difficult due to considerable motion artifact on both stress and resting images. There is reversibility in the mid to apical anterior wall suggesting inducible myocardial ischemia in this region. Left ventricular ejection fraction 47%. IMPRESSION: 1. Recent abnormal cardiac enzymes with mildly elevated troponin in the setting of acute volume overload/congestive heart failure related to end-stage renal disease, in this setting of missing dialysis for 5 days. 2. Suspected ischemic cardiomyopathy. Left ventricular ejection fraction appears to be near to 45% on echocardiography using Definity echo contrast and this is similar to ejection fraction obtained on Nuclear Medicine study. Although technically difficult there is suggestion of inducible ischemia in the anterior wall. 3. Ischemic left lower extremity with severe peripheral vascular disease. 4. Positive blood cultures for coagulase negative staph in 2 bottles. Dialysis catheter is suspected as source. 5. End-stage renal disease. 6. Diabetes mellitus requiring insulin for control. RECOMMENDATIONS: 1. For the present would manage patient's suspected ischemic heart disease and ischemic cardiomyopathy medically. Aspirin and carvedilol have been initiated as well as low-dose angiotensin receptor blocking agent. 2. Ultimately patient would benefit from definitive evaluation with coronary angiography but it would be better to defer this until after her ischemic left foot declares its course and positive blood cultures and possible dialysis line infection can be addressed. cc: Nehemias Parra MD
[2016-11-15] MEDS: VANCOMYCIN 1 GM/NS 1 GM/250 ML IVPB IV SCH (17:34)
--- NOTE | 2016-11-15 20:41 | Diag Imaging Result Document ---
PROCEDURE NAME: MYOCARDIAL PERF SCAN, STR/REST - 11/14/2016 SUMMARY: The patient underwent Lexiscan sestamibi study using a 2-day protocol. Patient was administered 41.9 millicuries of technetium-99m sestamibi on 11/13/2016 after which resting cardiac images were obtained. The patient returned on 11/14/2016, was administered Lexiscan after which the heart rate went from 78 beats per minute to 88 beats per minute and the blood pressure went from 135/62 to 107/43. With Lexiscan the patient denied chest discomfort. Following the administration of Lexiscan, the patient was administered 41.2 millicuries of technetium-99m sestamibi after which gated stress cardiac images were obtained. Baseline ECG demonstrates sinus rhythm, ST and T-wave abnormality, consider lateral ischemia. With Lexiscan, baseline ST and T-wave abnormality did not change. SPECT images were reconstructed in the short, horizontal, and vertical long axis. A review of these images demonstrated technically difficult images including both stress and rest images due to significant motion artifact that was still evident even after motion correction techniques. Images demonstrate moderately diminished activity in the basal to mid anterolateral region left ventricle on stress images which appears to improve on resting images. There is also mildly diminished activity in the mid to apical lateral region on stress images that also improves on resting images. Gated images demonstrate a calculated left ejection fraction of 47% with symmetrical wall motion. CONCLUSIONS: 1. Adequate response to Lexiscan. 2. Clinically negative for chest pain. 3. Electrocardiographically baseline ST and T-wave abnormality did not change significantly with Lexiscan. 4. Technically difficult Lexiscan sestamibi study due to considerable motion artifact demonstrating reversibility in the basal to mid anterior wall, and mid to apical lateral region as described suggesting inducible myocardial ischemia in these regions. Calculated left ejection fraction 47%. cc: MD Nhan Todd MD
[2016-11-16 05:53] LABS: BASO% 0.8 % (0.0-0.8); EOS# 0.63 X1000 (0.0-0.7); EOS% 3.6 % (0.0-10.0); HEMATOCRIT 38.7 % (37.0-47.0); IMM GRAN# 0.43 X1000 (0.0-0.04); IMM GRAN% 2.5 % (0.0-0.5); LYMPH# 2.85 X1000 (1.2-3.4); LYMPH% 16.4 % (20.5-51.1); MANUAL DIFF NEEDED? YES; MCH 28.4 PG (27-31); MCV 91.5 FL (81-99); MONO# 1.69 X1000 (0.11-0.59); MONO% 9.7 % (1.7-9.3); MPV 9.5 FL (7.4-10.4); PLT 347 X1000 (130-400); RBC 4.23 XMIL (4.2-5.4)
[2016-11-16] MEDS: HUMALOG SUBQ SCH ×4 (06:08→20:24)
[2016-11-16 06:29] LABS: CALCIUM 8.7 mg/dL (8.8-10.2)
[2016-11-16 06:33] LABS: BANDS 10 % (0-1); EOS 4 % (1-10); LYMPHS 18 % (21-51); MONO 6 % (1-9)
[2016-11-16] MEDS: DIOVAN PO SCH (08:14)
[2016-11-16] MEDS: ROCALTROL PO SCH (08:14)
[2016-11-16] MEDS: CRESTOR PO SCH (08:14)
[2016-11-16] MEDS: COREG PO SCH ×2 (08:14→20:22)
[2016-11-16] MEDS: ASPIRIN PO SCH (08:15)
[2016-11-16] MEDS: RENAGEL PO SCH ×3 (08:17→16:44)
[2016-11-16] MEDS: SENSIPAR PO SCH ×2 (09:47→20:22)
[2016-11-16] MEDS ORDERED: HEPARIN ONE (09:53)
[2016-11-16] MEDS ORDERED: NS 2,000 ML ONE (09:53)
[2016-11-16] MEDS ORDERED: NS 2,000 ML MISC PRN (10:09)
--- NOTE | 2016-11-16 13:44 | PROGRESS NOTE ---
DATE: 11/16/2016 SUBJECTIVE: Today Ms. Sun refers to be doing fine, she denies any complaints. OBJECTIVE: Vital signs: Blood pressure 118/84, pulse of 75, respirations 17, temperature 98 degrees, patient saturating 96%. General: Mr. Sun 51-year-old female. She was in bed. No seeming distress. HEENT: Mucosa is pink and moist. Anicteric. Acyanotic. Neck: Supple. Chest: Good air entry bilaterally. No crepitations. No rhonchi. Cardiovascular: Regular rate and rhythm. There is no murmurs, no rubs. Abdomen: Soft, nontender. Bowel sounds are present. Extremities: Right lower extremity has a BKA. The left lower extremity has some distal purple discoloration. The foot continues to be cold. There is some ulceration over the big toe. LABORATORY DATA: WBC is 17.35, hemoglobin is 13.0, platelet count of 347,000, there is 10% of bands on the peripheral smear. Sodium is 134, potassium is 5.0, chloride 91, bicarb is 17. Subsequent blood cultures so far has not shown anything. ASSESSMENT: 1. Fluid overload on presentation due to congestive heart failure and end-stage renal disease. 2. End-stage renal disease on hemodialysis. The patient is due for scheduled dialysis today. 3. Left ischemic limb which we think it is subacute limb. Patient was started on heparin on presentation but this has been discontinued. Patient is now just on prophylactic heparin. 4. Elevated troponin on presentation secondary to non-ST segment elevation myocardial infarction, cardiology has been consulted. 5. Congestive heart failure, ejection fraction of 30% with global hypokinesis likely due to ischemic cardiomyopathy. Patient is on statin, aspirin and beta trav. 6. Critical hyperkalemia on presentation resolved. 7. Secondary hyperparathyroidism due to renal disease and vitamin D deficiency. 8. Hyperphosphatemia due to end-stage renal disease. Patient is on phosphate banding. 9. Bone and mineral disease associated with end-stage renal disease noted. 10. Staphylococcal epidermidis bacteremia. Patient is on vancomycin. We repeat the blood culture yesterday. So far since it has been negative and patient has also been seen by ID. So in general I think today Ms. Sun is relatively stable, I think will be able to transfer her from the ICU to regular floor. The patient has been evaluated by Cardiology and at this point they do not want to do intervention, only aggressive medical therapy, will be pending on surgery to see what they want to do with the left leg ischemic limb. cc: Nhan Uiras MD MTDD
--- NOTE | 2016-11-16 13:52 | PROGRESS NOTE ---
DATE: 11/16/2016 SUBJECTIVE: She has a shoe on her foot, and she states that it is some better but still numb. OBJECTIVE: Vital Signs: Blood pressure 118/84, heart rate 75, respirations 14, afebrile. Intake 1 L. Output 3.2 L. PHYSICAL EXAMINATION: No acute distress. Skin is warm and dry. Conjunctivae are pink. Neck veins are not visible in the erect position. Heart is regular. Lungs have equal breath sounds. No crackles. Abdomen soft, nontender. Bowel sounds are present. Extremities have 1+ edema. The left leg is still cyanotic and somewhat cool. IMPRESSION: 1. End-stage renal disease with hyperkalemia and volume overload. She has received dialysis almost daily this week with progressive improvement in her weight and in her volume status by exam. She is currently undergoing dialysis, but her blood pressure is limiting further volume removal. 2. Electrolytes acceptable. Two K bath today. 3. Acidosis. Anion gap was somewhat elevated today at 26. She is receiving dialysis currently. 4. Anemia, improved. 5. Ischemic left lower leg. She is very reluctant to proceed with surgery. Her last encounter with Dr. Armenta was yesterday morning, and they are continuing to consider alternatives. cc: Damien Gratn MD
[2016-11-16] MEDS: VANCOMYCIN 1 GM/NS 1 GM/250 ML IVPB IV SCH (15:29)
--- NOTE | 2016-11-16 16:28 | PROGRESS NOTE ---
DATE: 11/16/2016 CHIEF COMPLAINT: Abnormal EKG, elevated cardiac enzymes, suspicious for acute coronary syndrome. SUBJECTIVE: Ms. Sun is feeling generally better. She is not having any pain. She is not short of breath. She is not vomiting. OBJECTIVE: VITAL SIGNS: Her blood pressure today is 96/56. Temperature is 97.8. Pulse is 81. Respirations are 20. GENERAL: She is awake and follows commands. HEENT: Unremarkable. CHEST: Sounds clear to auscultation and percussion. HEART: Sounds are regular and rhythmic. I do not hear any gallop or murmur. ABDOMEN: Soft. EXTREMITIES: Evidence of right below-knee amputation. Left leg is cool with dystrophic changes of the skin. NEUROLOGIC: Awake, alert, follows commands. BLOOD WORK: White count is 17,350, hemoglobin 12.0. Her sodium is 134, potassium 4.0, BUN 60, creatinine 8.0. Her cardiac enzymes on 11/13/2016 peaked at 1412. Her CK MB fraction peaked at 19.91. Troponin peaked at 0.681. DIAGNOSTIC TESTS: The last EKG that we have on record is from 11/13/2016 that shows sinus rhythm with T-wave abnormality in the precordial leads. The nuclear perfusion stress test reported by Dr. Parra indicates ischemia of the anterior wall as well as the apical lateral wall. Echocardiogram done on 11/12/2016 showed ejection fraction of 30%. IMPRESSIONS: 1. Patient who probably has suffered an acute coronary syndrome ,non ST myocardial infarction, in conjunction with severe metabolic derangement that included severe hyperkalemia. When this patient came into the hospital, her potassium was measured at 9.4, which is incredibly high. 2. Patient has an ischemic limb. 3. End-stage renal disease, on dialysis. 4. Possible ongoing infection with coagulase-negative Staphylococcus bacteremia , possibly coming from the dialysis catheter. RECOMMENDATIONS: At this point in time, the patient appears to be compensated. We will follow her clinically and make a decision with the surgical team as to what would be the next step. At this point in time, with an ongoing infection and an ischemic limb that might require amputation or extensive surgery, she is probably not the best candidate for any elective coronary arteriography. Dr. Parra will continue to follow her along. Thank you for the opportunity to participate in her evaluation. cc: Vignesh Chinchilla MD [facility]
[2016-11-16] MEDS: LABETALOL IV PRN (20:32)
[2016-11-17] MEDS: HUMALOG SUBQ SCH ×2 (05:35→06:20)
[2016-11-17] MEDS: DIOVAN PO SCH (07:45)
[2016-11-17] MEDS: SENSIPAR PO SCH (07:46)
[2016-11-17] MEDS: ROCALTROL PO SCH (07:47)
[2016-11-17] MEDS: RENAGEL PO SCH (07:47)
[2016-11-17] MEDS: COREG PO SCH (07:47)
[2016-11-17] MEDS: CRESTOR PO SCH (07:47)
[2016-11-17] MEDS: ASPIRIN PO SCH (07:47)
[2016-11-17 08:09] VITALS: BP 104/89
[2016-11-17] MEDS ORDERED: LANTUS SUBQ SCH (09:00)
--- NOTE | 2016-11-17 19:14 | DISCHARGE SUMMARY ---
ADMISSION DATE: 11/12/2016 DISCHARGE DATE: 11/17/2016 DISPOSITION: Home with home health. FOLLOWUP: 1. PCP, Dr. Mac. 2. Dr. Grant. 3. Dr. Laws. 4. Dr. Armenta. 5. Dr. Parra. CONSULTATIONS DURING THIS ADMISSION: 1. Cardiology was consulted. Patient was seen by Dr. Parra and Dr. Chinchilla. 2. Surgery was consulted. Patient was seen by Dr. Armenta. 3. Nephrology was consulted. Patient was seen by Dr. Grant. 4. ID was consulted. Patient was seen by Dr. Laws. INTERVENTIONS DURING THIS ADMISSION: None. IMAGING STUDIES OF SIGNIFICANCE: 1. Extremity arterial study was done which showed likely superficial femoral artery occlusion and disease with potential for disease in the profunda. 2. An echocardiogram was done which shows ejection fraction of 30% with global hypokinesis and akinesis of apical inferior wall, apical septum and very apex, suggestive of ischemic cardiomyopathy. 3. An aorta with run of CTA shows multiple stenosis and occlusions in the lower extremities. 4. The myocardial perfusion scan of the heart shows reversibility in the basal to mid anterior wall suggestive of inducible myocardial ischemia. Calculated EF was about 47. ADMISSION DIAGNOSES: 1. Life-threatening hyperkalemia. 2. End-stage renal disease. 3. Volume overload. 4. Metabolic acidosis. DIAGNOSES AT THE TIME OF DISCHARGE: 1. Fluid overload on presentation secondary to congestive heart failure and end-stage renal disease. 2. End-stage renal disease on hemodialysis. 3. Left ischemic limb (subacute limb). 4. Non ST elevation myocardial infarction on presentation, stable. 5. Congestive heart failure. Ejection fraction of 30% with global hypokinesis likely due to ischemic cardiomyopathy. 6. Critical hypokalemia on presentation, improved. 7. Secondary hyperparathyroidism due to renal disease and vitamin D deficiency. 8. Hyperphosphatemia due to end-stage renal disease. 9. Bone and mineral disease associated with end-stage renal disease. 10. Staphylococcal epidermidis bacteremia, resolved. 11. Severe peripheral vascular disease. 12. Diabetes mellitus with presenting A1c of 7.9. DISCHARGE MEDICATIONS: 1. Insulin glargine 70 units subcutaneous daily. 2. Omeprazole 20 mg daily. 3. Hydralazine 100 mg 3 times per day. 4. Gabapentin 100 mg b.i.d. 5. Calcitriol 0.25 mcg daily. 6. Carvedilol 6.25 daily b.i.d. 7. Sensipar 30 mg b.i.d. 8. Rosuvastatin 40 mg p.o. daily. 9. Sevelamer 800 three times per day. 10. Valsartan 40 mg daily. 11. Aspirin 81 mg daily. 12. Ergocalciferol 50,000 daily. PRESENTING COMPLAINT: Chest pain and shortness of breath. HISTORY OF PRESENT COMPLAINT: Ms. Sun is a 51-year-old female, with a history of diabetes mellitus on insulin, peripheral vascular disease status post right BKA, end-stage renal disease on scheduled dialysis Friday, Friday, and Friday. Presented to the emergency department because she has missed her dialysis 2 sessions in a row. Upon presentation patient was found to be in fluid overload and had a presenting potassium of 9.4. The patient was transferred from [place] to [facility] for higher medical care. HOSPITAL COURSE: The patient was admitted in the ICU and was treated acutely for her hyperkalemia which with dialysis it also came down to about 4.7 to 5.0. Patient was found to have a left ischemic limb. Multiple studies were done. It did show severe peripheral vascular disease with possible acute on subacute disease. Surgery evaluated the patient. At one point there was a decision to do an amputation; however, patient was very adamant that she did not want any amputation to be done. Troponins were also elevated and cardiac workup was done. The patient was found to have ejection fraction of 30% with possible ischemic cardiomyopathy. Cardiology was involved. At this point because of infection and other comorbidities, they preferred to treat the heart issues with medications for now and follow up in outpatient basis. The patient did have bacteremia which it was questionable whether it was coming from the ischemic limb or it was an infection of the catheter. Anyway, the repeat blood culture has been negative. The patient will continue with vancomycin for a total of 2 weeks starting from the day of the negative blood culture which was 11/15/2016, end of therapy will be 11/29/2016. Today Ms. Sun herself refers that she is doing fine and she wants to go home. She does not want any surgery and her blood cultures have been negative. We will therefore discharge her home. She is going to follow up with all those other subspecialties that have been involved in her care. She is completely asymptomatic and her lab works are unremarkable. She will have her regular dialysis tomorrow. She will go home with home health to help her around. All the discharge instructions have been discussed with her. Specifically we stressed the need for her to follow up with surgery and with cardiology to make sure that her limb does not get any worse or her heart does not need any further interventions. Disposition is home with home health. Activity as tolerated. Diet will be healthy heart diet and renal diet. Follow up with subspecialties named above. Time spent for discharge was 45 minutes. cc: Nhan Urias MD
--- NOTE | 2016-11-18 16:47 | PROVIDER DOCUMENTATION ---
This chart was entered by Caleb Blunt Scribe, acting as scribe for Babatunde Elaine MD. HPI-Chest Pain - General Chief Complaint: Chest Pain Stated Complaint: LOW BP Time Seen by Provider: 11/12/16 10:25 Source: patient Allergies/Adverse Reactions: Patient Allergies Allergy/AdvReac Type Severity Reaction Status Date / Time saccharin AdvReac Severe ANAPHYLAXIS Verified 11/12/16 10:22 Home Medications: Home Medication List Medication Instructions Recorded Confirmed Last Taken Type Insulin Glargine [Lantus] 40 unit SUBQ QHS 04/07/13 11/12/16 04/07/13 History Omeprazole [Prilosec] 20 mg PO DAILY 04/07/13 11/12/16 04/07/13 History Methocarbamol 500 mg PO TID PRN PRN 10/07/15 11/12/16 Unknown History Gabapentin [Neurontin] 100 mg PO BID #0 capsule 10/12/15 11/12/16 Unknown Rx Hydralazine [Apresoline] 100 mg PO TID@0900,1500,2100 #0 10/12/15 11/12/16 Unknown Rx tablet Aspirin 81 mg PO DAILY #90 chewtab 11/17/16 Unknown Rx Calcitriol [Rocaltrol] 0.25 microgm PO DAILY #90 capsule 11/17/16 Unknown Rx Carvedilol [Coreg] 6.25 mg PO Q12HR #120 tablet 11/17/16 Unknown Rx Cinacalcet [Sensipar] 30 mg PO BID #120 tablet 11/17/16 Unknown Rx Ergocalciferol (Vitamin D2) 50,000 unit PO Q7D #20 capsule 11/17/16 Unknown Rx [Vitamin D] ROSUVAstatin [Crestor] 40 mg PO DAILY #60 tablet 11/17/16 Unknown Rx Sevelamer [Renagel] 800 mg PO TID CC #120 tablet 11/17/16 Unknown Rx Valsartan [Diovan] 40 mg PO DAILY #90 tablet 11/17/16 Unknown Rx - History of Present Illness-CP Nature of Presenting Problem: Patient is a 51 y/o F that presents to the ER via EMS with chest pain that began this am. Ems noted that her BP was systolic in the 80s. pain began about a hour and half ago. She has back pain as well. She is a dialysis patient but reports not being in awhile due to misunderstanding. She denies shortness of breath, fever/chills, or cough. patient is angry and unpleasant. Location: reports: central Quality of Pain: reports: sharp Severity in ED: moderate Onset/Duration: abrupt, 1-3 hours ago Timing: still present, improving Context/Activities at Onset: reports: none Modifying Factors: worse with: lying down Associated Symptoms: reports: back pain. denies: fever/chills, nausea, shortness of breath, vomiting Nitro Today/Relief: no nitro taken today Similar Symptoms Previously?: No Recently Seen Here or By Another Healthcare Provider: No Review of Systems - Adult - REVIEW OF SYSTEMS - ADULT Constitutional: denies: chills, fever Eyes: reports: no symptoms reported Ears, Nose, Mouth & Throat: denies: ear pain, sinus problem, throat pain, throat swelling Cardiovascular: reports: chest pain. denies: palpitations, syncope Respiratory: denies: cough, shortness of breath Gastrointestinal: denies: abdominal pain, diarrhea, nausea, vomiting Genitourinary: reports: no symptoms reported Musculoskeletal: reports: back pain. denies: joint pain, neck pain Integumentary: reports: no symptoms reported Neurological: reports: no symptoms reported Psychiatric: reports: no symptoms reported Endocrine: reports: no symptoms reported Hematologic/Lymphatic: reports: no symptoms reported Allergic/Immunologic: reports: no symptoms reported All Other Systems: Reviewed and Negative Past History - Adult - PAST MEDICAL HISTORY-ADULT Review of Records: reports: Old Records Reviewed, Nursing Assessment Review, Medications Reviewed Cardiovascular: reports: CAD, HTN, hyperlipidemia Gastrointestinal: reports: GERD Genitourinary: reports: dialysis, ESRD, kidney disease Neurological: reports: CVA Endocrine/Immune: reports: Diabetes - PRIOR SURGERIES/PROCEDURES Surgical/Procedure History: reports: tonsillectomy, orthopedic (extremity) (RBKA ) - IMMUNIZATION STATUS Childhood Immunizations: See Nurse Assessment Flu Vaccine: See Nurse Assessment - FAMILY HISTORY Family History: reviewed, not pertinent - SOCIAL HISTORY Smoking: other (unknown) Living Situation: family Physical Exam-General - PHYSICAL EXAM-ADULT Initial Vital Signs Reviewed: Yes - CONSTITUTIONAL General Appearance: alert, mild distress, moderate distress, anxious (angry) - EYES Eyes: PERRL/EOMI, pink conjunctivae - HEAD, EARS, NOSE, MOUTH & THROAT HENMT: normocephalic/atraumatic, moist mucous membranes, normal ENT inspection - NECK Neck: full range of motion, normal inspection - RESPIRATORY Respiratory: lungs clear, normal breath sounds, no respiratory distress, no accessory muscle use - CARDIOVASCULAR Cardiovascular: no edema, no gallop, bradycardia - GASTROINTESTINAL (ABDOMEN) Abdominal Exam: normal bowel sounds, non tender, soft - MUSCULOSKELETAL Extremity: no pedal edema, pelvis stable, other (right bka) - SKIN Integumentary: warm/dry, other (venous stasis to left lower leg) - NEUROLOGIC Neurologic: grossly normal, no motor/sensory deficits - PSYCHIATRIC Psych/Mental Status: oriented x 3, anxious Progress - PLAN OF CARE/RESULTS Progress/Plan/Lab Results: Orders Category Date Time Status Cardiac Monitoring DIRECTED Care 11/12/16 10:31 Completed Dialysate Bath: DIRECTED Care 11/12/16 12:27 Completed Dialysate Flow: DIRECTED Care 11/12/16 12:27 Completed Dialysis Blood Flow: DIRECTED Care 11/12/16 12:27 Completed Dialysis Machine Settings: DIRECTED Care 11/12/16 12:27 Completed Dialysis Treatment Time: DIRECTED Care 11/12/16 12:27 Completed Dialysis Treatment Weight ROUTINE Care 11/12/16 12:27 Completed Dialysis UF Removal Amount: DIRECTED Care 11/12/16 12:27 Completed Dialyzer Type: DIRECTED Care 11/12/16 12:27 Completed NRSG - Obtain Dialysis Consent NOW Care 11/12/16 12:27 Completed Saline Loc NOW Care 11/12/16 10:31 Completed CHEST-PORTABLE [RAD] Stat Exams 11/12/16 10:31 Completed ABG [RESP] Routine Lab 11/12/16 11:08 Completed CBC WITH ELECTRONIC DIFF [HEME] Stat Lab 11/12/16 10:29 Completed CK PROFILE [SP CHEM] Stat Lab 11/12/16 10:29 Completed COMPREHENSIVE METABOLIC PANEL [CHEM] Stat Lab 11/12/16 10:29 Completed LIPASE [CHEM] Stat Lab 11/12/16 10:29 Completed MAGNESIUM [CHEM] Stat Lab 11/12/16 10:29 Completed PRO B-NATRIURETIC PEPTIDE Stat Lab 11/12/16 10:29 Completed [address]IME WITH INR PL [COAG] Stat Lab 11/12/16 10:[address] [COAG] Stat Lab 11/12/16 10:29 Completed TROPONIN T Stat Lab 11/12/16 10:29 Completed 0.9% Sodium Chloride Inj [Ns] 2,000 ml Med 11/12/16 12:51 Discontinued .ROUTE As Directed 0.9% Sodium Chloride Inj [Ns] 2,000 ml Med 11/12/16 12:27 Discontinued MISC As Directed 0.9% Sodium Chloride Inj [Ns] 250 ml Med 11/12/16 11:01 Discontinued .ROUTE As Directed 0.9% Sodium Chloride Inj [Ns] 250 ml Med 11/12/16 11:10 Discontinued IV 999 mls/hr Albuterol [Albuterol Neb] Med 11/12/16 12:16 Discontinued 25 mg INH NOW ONE Aspirin Med 11/12/16 10:31 Discontinued 325 mg PO STAT STA Calcium Gluconate 1 gm Med 11/12/16 12:12 Discontinued 0.9% Sodium Chloride Inj [Ns] 50 ml IV NOW Dextrose 50% Syringe [D50w Syringe] Med 11/12/16 12:12 Discontinued 50 ml IV NOW ONE Heparin Med 11/12/16 12:27 Discontinued 1,000 unit IV BOLUS PRN Heparin Med 11/12/16 12:51 Discontinued 10,000 unit .ROUTE .STK-MED ONE Heparin 1000 Units/ml [Tight: 0.2 ml/Hr] Med 11/12/16 12:27 Discontinued 1 each MISC DIRECTED PRN Insulin Human Regular ([place] [Humulin R ([place])] Med 11/12/16 12:12 Discontinued 10 units IV NOW ONE Sodium Bicarbonate 8.4% Med 11/12/16 11:51 Discontinued 50 meq .ROUTE .STK-MED ONE Sodium Bicarbonate 8.4% 50 meq Med 11/12/16 12:00 Discontinued 0.9% Sodium Chloride Inj [Ns] 250 ml IV ONCE Aerosol Treatments Routine Oth 11/12/16 12:16 Completed Aerosol Treatments Stat Oth 11/12/16 12:16 Completed EKG [EKG] Stat Ther 11/12/16 10:31 Draft Transfer/Admit Order [TRANSFER] Routine Transfer 11/12/16 12:40 Completed Vital Signs Pulse Resp BP Pulse Ox 11/12/16 10:25 56 L 14 108/42 96 saccharin Adverse Reaction (Severe, Verified 11/12/16 10:22) ANAPHYLAXIS Insulin Glargine [Lantus] 40 unit SUBQ QHS 04/07/13 Omeprazole [Prilosec] 20 mg PO DAILY 04/07/13 Labetalol HCl 100 mg PO BID 10/07/15 Methocarbamol 500 mg PO TID PRN PRN 10/07/15 Gabapentin [Neurontin] 100 mg PO BID #0 capsule 10/12/15 Hydralazine [Apresoline] 100 mg PO TID@0900,1500,2100 #0 tablet 10/12/15 Laboratory 11/12/16 11/12/16 11/12/16 11:08 10:31 10:29 WBC RBC Hgb Hct MCV MCH MCHC RDW Std Deviation Plt Count MPV Immature Gran % (Auto) Neut % (Auto) Lymph % (Auto) [place] % (Auto) Eos % (Auto) Baso % (Auto) Immature Gran # (Auto) Neut # (Auto) Lymph # (Auto) [place] # (Auto) Eos # (Auto) Baso # (Auto) PT 16.1 H INR 1.19 H APTT (Factor Assay) 33.7 Specimen Type ARTERIAL Sample Site R RADIAL pH 7.19 L* pCO2 24 L pO2 87 HCO3 11.3 L Base Excess -17.4 L Oxyhemoglobin 91.7 L ABG O2 Sat (Calculated) 13.1 L ABG O2 Saturation 95.7 ABG Carboxyhemoglobin 2.80 H ABG Methemoglobin 1.4 Alexey Test YES A-a O2 Difference 111.0 Total Hemoglobin 10.1 L Lactate 1.40 Blood Gas Modality CANNULA FiO2 % 32.0 Sodium Potassium Chloride Carbon Dioxide Anion Gap BUN Creatinine Estimated GFR/1.73 m2 BUN/Creatinine Ratio Glucose POC Glucose 156 H Calculated Osmolality Calcium Magnesium Total Bilirubin AST ALT Alkaline Phosphatase Creatine Kinase Troponin T Gdf-H-Qhsxlacaxuc Pept Total Protein Albumin Globulin Albumin/Globulin Ratio Lipase 11/12/16 11/12/16 11/12/16 10:29 10:29 10:29 WBC 12.37 H RBC 3.55 L Hgb 10.1 L Hct 32.1 L MCV 90.4 MCH 28.5 MCHC 31.5 L RDW Std Deviation 16.1 H Plt Count 305 MPV 9.5 Immature Gran % (Auto) 0.5 Neut % (Auto) 77.4 H Lymph % (Auto) 12.4 L [place] % (Auto) 7.9 Eos % (Auto) 1.4 Baso % (Auto) 0.4 Immature Gran # (Auto) 0.06 H Neut # (Auto) 9.58 H Lymph # (Auto) 1.53 [place] # (Auto) 0.98 H Eos # (Auto) 0.17 Baso # (Auto) 0.05 PT INR APTT (Factor Assay) Specimen Type Sample Site pH pCO2 pO2 HCO3 Base Excess Oxyhemoglobin ABG O2 Sat (Calculated) ABG O2 Saturation ABG Carboxyhemoglobin ABG Methemoglobin Alexey Test A-a O2 Difference Total Hemoglobin Lactate Blood Gas Modality FiO2 % Sodium Potassium Chloride Carbon Dioxide Anion Gap BUN Creatinine Estimated GFR/1.73 m2 BUN/Creatinine Ratio Glucose POC Glucose Calculated Osmolality Calcium Magnesium Total Bilirubin AST ALT Alkaline Phosphatase Creatine Kinase Troponin T 0.146 H [id number]-Gdfebsmziut Pept 83391 H Total Protein Albumin Globulin Albumin/Globulin Ratio Lipase 11/12/16 10:29 WBC RBC Hgb Hct MCV MCH MCHC RDW Std Deviation Plt Count MPV Immature Gran % (Auto) Neut % (Auto) Lymph % (Auto) [place] % (Auto) Eos % (Auto) Baso % (Auto) Immature Gran # (Auto) Neut # (Auto) Lymph # (Auto) [place] # (Auto) Eos # (Auto) Baso # (Auto) PT INR APTT (Factor Assay) Specimen Type Sample Site pH pCO2 pO2 HCO3 Base Excess Oxyhemoglobin ABG O2 Sat (Calculated) ABG O2 Saturation ABG Carboxyhemoglobin ABG Methemoglobin Alexey Test A-a O2 Difference Total Hemoglobin Lactate Blood Gas Modality FiO2 % Sodium 136 Potassium 9.4 H* Chloride 96 L Carbon Dioxide 11 L Anion Gap 30 BUN 128 H Creatinine 14.2 H* Estimated GFR/1.73 m2 3 BUN/Creatinine Ratio 8 Glucose 158 H POC Glucose Calculated Osmolality 312 Calcium 7.5 L Magnesium 2.4 Total Bilirubin 0.70 AST 25 ALT 25 Alkaline Phosphatase 209 H Creatine Kinase 228 H Troponin T [id number]-M-Fpnacjsycxh Pept Total Protein 6.9 Albumin 3.8 Globulin 3.0 Albumin/Globulin Ratio 1.0 Lipase 261 H Result Diagrams: 11/16/16 04:33 11/16/16 04:33 - EKG 1 Time of EKG reading by physician:: 10:21 EKG Read and Signed by:: Babatunde Elaine EKG Interpretation (*Must complete 3 of following elements*): Abnormal Rate: 42 Rhythm: sinus bradycardia [place]: left QRS: NSIVCD [place] Interval: normal ST Wave: non-specific ST changes - XRAY 1 XRAY Study: Chest Impression: Abnormal Comparison with other Films: no changes (from prior 10/2015) XRAY Interpretation: stable chest - CONSULTS/PCP/HOSPITALIST Notification #1 *Consult/PCP/Hospitalist*: Juan Rodriguez ( with hospitalist at [facility]) Time Discussed: 12:02 Reason/Comments: will be paged at [facility] #2 Consult: ( hospitalist flight surgeon) Time Discussed: 12:13 Reason/Comments: he will set up transfer to [facility] general Consult Disposition: Admit #3 Consult: Time Discussed: 12:15 Reason/Comments: he will consult and set up dialysis Consult Disposition: Admit (he will consult) Departure - Departure Date of Disposition Decision: 11/12/16 Time of Disposition Decision: 12:13 DIAGNOSIS: Altered mental status, Renal failure, Hypoxia, Agitation, Hypotension Disposition: ADMITTED INPATIENT 09 Certified Medical Emergency: Emergent Condition: Critical - Critical Care Note This patient required my direct & personal management of CC.: Yes Total Time (mins): 65 Critical Care Statement: This patient required my direct personal management to treat or rule out processes, the absence of which, could potentiallly result in sudden, clinically significant life or limb threatening deterioration. Attestation - Physician/ SERENA Attestation Patient care was provided by Advanced Practice Provider:: No The physician spent face to face time with patient:: Yes Advanced Practice Provider documentation review:: Supervising physician onsite and consulted in the evaluation and care of this patient. The physician did have a face to face encounter with the patient. This chart was documented by the indicated scribe, (Caleb Blunt, Scribe) and accurately reflects the services I performed and decisions made by me, Babatunde Elaine MD, as attested by the provider's signature.
== END 2016-11-17 10:15 | disposition home or self-care (01) ==
LOC: P.ED 10:18 → SUATTDRO 13:02 → ICU 13:02
PROVIDERS: ATTEND Internal Medicine